=== PATIENT | female | born 1965 | race Caucasian/White ===

== ENCOUNTER 2023-04-14 23:17 | Emergency (ER) | payer MEDICAID, OTHER, SELFPAY ==
[2023-04-14 23:34] VITALS: BP 135/55; PULSE 87; RESP 20; TEMP 36.6; O2SAT 96; BMI 23.0
--- NOTE | 2023-04-15 00:07 | PC.NURSE ---
staying with mother recently, mother recently ill, states recent addition of wellbutrin to regimen, staed she took a xanax prior to coming in (states prescribed) denies recent use of drugs or etoh, denies hallucinations, contracts for safety here. states shes gone to hospital for sim problem in last month. also states restatrted smoking again in last week, hasnt smoked for 30 years.
--- NOTE | 2023-04-15 00:10 | ED_ITS ---
HPI - Psych General Chief Complaint: Psychiatric Symptoms Stated Complaint: Crisis Eval Time Seen by Provider: 04/14/23 23:49 Source: patient Mode of arrival: ambulatory Limitations: no limitations History of Present Illness HPI Narrative: 57 yo female with PMH of anxiety no prior SI attempts or inpatient stays recent add on of wellbutrin 1 month ago but denies this made her symptoms worse comes in with worsening anxiety and depression vague SI no plan wants to talk to crisis team MD complaint: suicidal ideation, feels depressed and anxiety Onset (ago): month(s) (1+) Duration: getting worse History of same: Yes Relieving factors: none Exacerbating factors: other Context: new medication(s) and significant life stressor Associated psychiatric symptoms: depression and suicidal ideation Associated symptoms: denies other symptoms Treatments prior to arrival: none If self harm: admits thoughts of self harm Related Data Allergies Allergy/AdvReac Type Severity Reaction Status Date / Time levofloxacin [From Levaquin] Allergy Unknown Verified 04/14/23 23:34 pseudoephedrine Allergy Unknown Verified 04/14/23 23:34 [From Sudafed] Sulfa (Sulfonamide Allergy Unknown Verified 04/14/23 23:34 Antibiotics) erythromycin base AdvReac Mild Unknown Unverified 04/15/23 00:36 Fish Containing Products AdvReac Stomach Verified 04/15/23 00:37 Upset Pork/Porcine Containing AdvReac Stomach Verified 04/15/23 00:36 Products Upset Review of Systems 2 Review of Systems: Constitutional : No Fever, No Chills ENT/Mouth : No Ear Pain, No Nasal Congestion, No sore throat Eyes: No Eye Pain, No Swelling, No Redness Cardiovascular : No Chest Pain, No SOB Respiratory : No Cough, No Sputum, No Dyspnea Gastrointestinal : No Nausea, No Vomiting, No Diarrhea, No Hematochezia, No Melena Genitourinary : No Dysuria, No Urinary Frequency, No Hematuria Musculoskeletal : No Myalgias Skin : No Skin Lesions, No rash Neuro : No Weakness, No Numbness, No Paresthesias, No Dizziness, No Headache Psych : positive Anxiety, positive Depression, positive SI no HI Heme/Lymph: No Lymphadenopathy Endocrine : No Polyuria, No Polydipsia All other systems reviewed and are negative [facility] Past Medical History Medical History Anxiety Social History Social History (Updated 04/15/23 @ 00:10 by Nasima Ambrocio DO) Patient Tobacco Use Status: Current someday Tobacco user Advance Directives: No Advance Directives Information Provided: No Healthcare Proxy: No Guardian: No Physical Exam 2 Vital Signs: Vital Signs: Last Vital Signs Temp 97.9 F 04/14/23 23:34 Pulse 87 04/14/23 23:34 Resp 20 04/14/23 23:34 BP 135/55 L 04/14/23 23:34 Pulse Ox 96 04/14/23 23:34 O2 Del Method Room Air 04/14/23 23:34 BMI result Body Mass Index 23.0 Appearance: Alert. Oriented X3. No acute distress. Eyes: Pupils equal, round and reactive to light. ENT: Pharynx normal. Neck: Normal inspection. Neck supple. CVS: Normal heart rate and rhythm. Pulses normal. Respiratory: No respiratory distress. Breath sounds normal. Abdomen: Soft and nontender. Skin: Skin warm and dry. Normal skin color. Normal skin turgor. Extremities: No lower extremity edema. No calf ttp Neuro: Oriented X 3. No motor deficit. No sensory deficit. CN2-12 intact Course Course Course Narrative: Physician observation started at 1212am. Patient placed in physician observation because the patient needed more time for CARE team to assess the need for psych admission. At the time observation was started the patient's vitals were stable, patient is alert and oriented but anxious, Neuro: nonfocal, CV RRR, Lungs clear Reevaluation(s) Reevaluation #1: Physician observation ended at 336am. Patient seen and cleared by CARE team. Plan is to follow up with outpatient program. NAD, lungs clear, CV RRR, Abd nontender, Neuro intact. Disposition is for home. Medical Decision Making Medical Decision Making MDM Narrative: 57 yo female with PMH of anxiety here with worsening anxiet started wellbutrin 1 month ago not helping doesn't feel it is causing worsening symptoms or vague SI at this time no medical complaints will obtain labs and CARE team consult Differential Diagnosis Differential Diagnoses: The differential diagnosis associated with the presentation includes anxiety and depression Admission/Observation Consideration of admission/observation: Escalation of care including admission/observation considered observe until care team sees patient Consult Healthcare Provider Management of the patient was discussed with: Behavioral Health Provider Lab Data [facility] Lab Attestation statement: I reviewed the patient's lab results. 04/15/23 00:30 04/15/23 00:31 Labs: Lab Results 04/15/23 04/15/23 04/15/23 Range/Units 00:30 00:31 00:37 WBC 7.3 (4.8-10.8) X10*3/uL RBC 4.39 (4.20-5.50) X10*6/uL Hgb 12.7 (12.0-16.0) g/dl Hct 36.5 L (37.0-47.0) % MCV 83.1 (80.0-98.0) fL MCH 28.9 (27.0-33.0) pg MCHC 34.8 (31.0-35.0) g/dl RDW 13.6 (11.0-16.0) % Plt Count 262 (160-400) X10*3/uL MPV 10.0 (9.4-12.3) fL Immature Gran % (Auto) 0.3 (0.0-0.4) % Neut % (Auto) 61.9 (45-73) % Lymph % (Auto) 28.0 (20-40) % [place] % (Auto) 6.4 (2-11) % Eos % (Auto) 2.9 (0-4) % Baso % (Auto) 0.5 (0-2) % Lymph # (Auto) 2.1 (1.2-4.9) X10*3/uL [place] # (Auto) 0.5 (0.1-1.2) X10*3/uL Eos # (Auto) 0.2 (0.0-0.4) X10*3/uL Baso # (Auto) 0.0 (0.0-0.2) X10*3/uL Abs Immat Gran (auto) 0.02 (0.00-0.03) X10*3/uL Absolute Neuts (auto) 4.5 (2.0-8.3) x10*3/uL Absolute Nucleated RBC 0.000 (0.0-0.012) X10*3/uL Nucleated RBC % (auto) 0.0 (0.0-0.2) /100WBC Sodium 143 (135-145) mmol/L Potassium 3.4 (3.3-5.1) mmol/L Chloride 107 (96-108) mmol/L Carbon Dioxide 27 (22-29) mmol/L Anion Gap 12 (12-20) BUN 16 (9-16) mg/dL Creatinine 0.83 (0.5-1.4) mg/dL Estim Creat Clear Calc 63.3 Estimated GFR > 60 Random Glucose 138 H (60-115) mg/dL Calcium 9.5 (8.4-10.2) mg/dL Magnesium 2.0 (1.6-2.6) mg/dL Total Bilirubin 0.2 (0.0-1.0) mg/dL Direct Bilirubin 0.2 (0.0-0.5) mg/dL AST 16 (5-31) U/L ALT 20 (0-31) U/L Alkaline Phosphatase 74 (39-117) U/L Total Protein 6.6 (6.5-8.0) g/dL Albumin 3.9 (3.5-5.0) g/dL Urine Color Yellow Urine Appearance Urine pH (5.0-9.0) Ur Specific [place] (1.005-1.025) Urine Protein (Neg-Trace) mg/dL Urine Glucose (UA) (Negative) mg/dL Urine Ketones (Negative) mg/dL Urine Blood (Negative) Urine Nitrite (Negative) Ur Leukocyte Esterase (Negative) Urine RBC (0-2) /HPF Urine WBC (0-5) /HPF Urine WBC Clumps Ur Squamous Epith Cells (0-2) /HPF Ur Transition Epith Cell Ur Renal Epithelial Cell Calcium Oxalate Crystal Leucine Crystals Cystine Crystals Tyrosine Crystals Other Crystals Urine Bacteria (None Seen) Urine Parasites Bilirubin Casts Epithelial Casts Fatty Casts Hyaline Casts (0-2) /LPF Granular Casts Waxy Casts Broad Casts RBC Casts WBC Casts Other Casts Urine Trichomonas Urine Yeast Urine Opiates Screen (Not Detect) Urine Fentanyl Screen (Not Detect) Ur Barbiturates Screen (Not Detect) Ur Phencyclidine Scrn (Not Detect) Ur Amphetamines Screen (Not Detect) U Benzodiazepines Scrn (Not Detect) Urine Cocaine Screen (Not Detect) U Marijuana (THC) Screen (Not Detect) Ethyl Alcohol < 10 mg/dL COVID-19 ([facility]) Negative (Negative) COVID-19 Clin Com See Note 04/15/23 04/15/23 04/15/23 Range/Units 00:37 00:37 00:37 WBC (4.8-10.8) X10*3/uL RBC (4.20-5.50) X10*6/uL Hgb (12.0-16.0) g/dl Hct (37.0-47.0) % MCV (80.0-98.0) fL MCH (27.0-33.0) pg MCHC (31.0-35.0) g/dl RDW (11.0-16.0) % Plt Count (160-400) X10*3/uL MPV (9.4-12.3) fL Immature Gran % (Auto) (0.0-0.4) % Neut % (Auto) (45-73) % Lymph % (Auto) (20-40) % [place] % (Auto) (2-11) % Eos % (Auto) (0-4) % Baso % (Auto) (0-2) % Lymph # (Auto) (1.2-4.9) X10*3/uL [place] # (Auto) (0.1-1.2) X10*3/uL Eos # (Auto) (0.0-0.4) X10*3/uL Baso # (Auto) (0.0-0.2) X10*3/uL Abs Immat Gran (auto) (0.00-0.03) X10*3/uL Absolute Neuts (auto) (2.0-8.3) x10*3/uL Absolute Nucleated RBC (0.0-0.012) X10*3/uL Nucleated RBC % (auto) (0.0-0.2) /100WBC Sodium (135-145) mmol/L Potassium (3.3-5.1) mmol/L Chloride (96-108) mmol/L Carbon Dioxide (22-29) mmol/L Anion Gap (12-20) BUN (9-16) mg/dL Creatinine (0.5-1.4) mg/dL Estim Creat Clear Calc Estimated GFR Random Glucose (60-115) mg/dL Calcium (8.4-10.2) mg/dL Magnesium (1.6-2.6) mg/dL Total Bilirubin (0.0-1.0) mg/dL Direct Bilirubin (0.0-0.5) mg/dL AST (5-31) U/L ALT (0-31) U/L Alkaline Phosphatase (39-117) U/L Total Protein (6.5-8.0) g/dL Albumin (3.5-5.0) g/dL Urine Color Cancelled Urine Appearance Cloudy Cancelled Urine pH 7.0 Cancelled (5.0-9.0) Ur Specific [place] 1.020 (1.005-1.025) Urine Protein (Neg-Trace) mg/dL Urine Glucose (UA) (Negative) mg/dL Urine Ketones (Negative) mg/dL Urine Blood (Negative) Urine Nitrite (Negative) Ur Leukocyte Esterase (Negative) Urine RBC (0-2) /HPF Urine WBC (0-5) /HPF Urine WBC Clumps Ur Squamous Epith Cells (0-2) /HPF Ur Transition Epith Cell Ur Renal Epithelial Cell Calcium Oxalate Crystal Leucine Crystals Cystine Crystals Tyrosine Crystals Other Crystals Urine Bacteria (None Seen) Urine Parasites Bilirubin Casts Epithelial Casts Fatty Casts Hyaline Casts (0-2) /LPF Granular Casts Waxy Casts Broad Casts RBC Casts WBC Casts Other Casts Urine Trichomonas Urine Yeast Urine Opiates Screen (Not Detect) Urine Fentanyl Screen (Not Detect) Ur Barbiturates Screen (Not Detect) Ur Phencyclidine Scrn (Not Detect) Ur Amphetamines Screen (Not Detect) U Benzodiazepines Scrn (Not Detect) Urine Cocaine Screen (Not Detect) U Marijuana (THC) Screen (Not Detect) Ethyl Alcohol mg/dL COVID-19 ([facility]) (Negative) COVID-19 Clin Com 04/15/23 04/15/23 04/15/23 Range/Units 00:37 00:37 00:37 WBC (4.8-10.8) X10*3/uL RBC (4.20-5.50) X10*6/uL Hgb (12.0-16.0) g/dl Hct (37.0-47.0) % MCV (80.0-98.0) fL MCH (27.0-33.0) pg MCHC (31.0-35.0) g/dl RDW (11.0-16.0) % Plt Count (160-400) X10*3/uL MPV (9.4-12.3) fL Immature Gran % (Auto) (0.0-0.4) % Neut % (Auto) (45-73) % Lymph % (Auto) (20-40) % [place] % (Auto) (2-11) % Eos % (Auto) (0-4) % Baso % (Auto) (0-2) % Lymph # (Auto) (1.2-4.9) X10*3/uL [place] # (Auto) (0.1-1.2) X10*3/uL Eos # (Auto) (0.0-0.4) X10*3/uL Baso # (Auto) (0.0-0.2) X10*3/uL Abs Immat Gran (auto) (0.00-0.03) X10*3/uL Absolute Neuts (auto) (2.0-8.3) x10*3/uL Absolute Nucleated RBC (0.0-0.012) X10*3/uL Nucleated RBC % (auto) (0.0-0.2) /100WBC Sodium (135-145) mmol/L Potassium (3.3-5.1) mmol/L Chloride (96-108) mmol/L Carbon Dioxide (22-29) mmol/L Anion Gap (12-20) BUN (9-16) mg/dL Creatinine (0.5-1.4) mg/dL Estim Creat Clear Calc Estimated GFR Random Glucose (60-115) mg/dL Calcium (8.4-10.2) mg/dL Magnesium (1.6-2.6) mg/dL Total Bilirubin (0.0-1.0) mg/dL Direct Bilirubin (0.0-0.5) mg/dL AST (5-31) U/L ALT (0-31) U/L Alkaline Phosphatase (39-117) U/L Total Protein (6.5-8.0) g/dL Albumin (3.5-5.0) g/dL Urine Color Urine Appearance Urine pH (5.0-9.0) Ur Specific [place] Cancelled (1.005-1.025) Urine Protein Negative Cancelled (Neg-Trace) mg/dL Urine Glucose (UA) Negative Cancelled (Negative) mg/dL Urine Ketones Negative (Negative) mg/dL Urine Blood (Negative) Urine Nitrite (Negative) Ur Leukocyte Esterase (Negative) Urine RBC (0-2) /HPF Urine WBC (0-5) /HPF Urine WBC Clumps Ur Squamous Epith Cells (0-2) /HPF Ur Transition Epith Cell Ur Renal Epithelial Cell Calcium Oxalate Crystal Leucine Crystals Cystine Crystals Tyrosine Crystals Other Crystals Urine Bacteria (None Seen) Urine Parasites Bilirubin Casts Epithelial Casts Fatty Casts Hyaline Casts (0-2) /LPF Granular Casts Waxy Casts Broad Casts RBC Casts WBC Casts Other Casts Urine Trichomonas Urine Yeast Urine Opiates Screen (Not Detect) Urine Fentanyl Screen (Not Detect) Ur Barbiturates Screen (Not Detect) Ur Phencyclidine Scrn (Not Detect) Ur Amphetamines Screen (Not Detect) U Benzodiazepines Scrn (Not Detect) Urine Cocaine Screen (Not Detect) U Marijuana (THC) Screen (Not Detect) Ethyl Alcohol mg/dL COVID-19 ([facility]) (Negative) COVID-19 Clin Com 04/15/23 04/15/23 04/15/23 Range/Units 00:37 00:37 00:37 WBC (4.8-10.8) X10*3/uL RBC (4.20-5.50) X10*6/uL Hgb (12.0-16.0) g/dl Hct (37.0-47.0) % MCV (80.0-98.0) fL MCH (27.0-33.0) pg MCHC (31.0-35.0) g/dl RDW (11.0-16.0) % Plt Count (160-400) X10*3/uL MPV (9.4-12.3) fL Immature Gran % (Auto) (0.0-0.4) % Neut % (Auto) (45-73) % Lymph % (Auto) (20-40) % [place] % (Auto) (2-11) % Eos % (Auto) (0-4) % Baso % (Auto) (0-2) % Lymph # (Auto) (1.2-4.9) X10*3/uL [place] # (Auto) (0.1-1.2) X10*3/uL Eos # (Auto) (0.0-0.4) X10*3/uL Baso # (Auto) (0.0-0.2) X10*3/uL Abs Immat Gran (auto) (0.00-0.03) X10*3/uL Absolute Neuts (auto) (2.0-8.3) x10*3/uL Absolute Nucleated RBC (0.0-0.012) X10*3/uL Nucleated RBC % (auto) (0.0-0.2) /100WBC Sodium (135-145) mmol/L Potassium (3.3-5.1) mmol/L Chloride (96-108) mmol/L Carbon Dioxide (22-29) mmol/L Anion Gap (12-20) BUN (9-16) mg/dL Creatinine (0.5-1.4) mg/dL Estim Creat Clear Calc Estimated GFR Random Glucose (60-115) mg/dL Calcium (8.4-10.2) mg/dL Magnesium (1.6-2.6) mg/dL Total Bilirubin (0.0-1.0) mg/dL Direct Bilirubin (0.0-0.5) mg/dL AST (5-31) U/L ALT (0-31) U/L Alkaline Phosphatase (39-117) U/L Total Protein (6.5-8.0) g/dL Albumin (3.5-5.0) g/dL Urine Color Urine Appearance Urine pH (5.0-9.0) Ur Specific [place] (1.005-1.025) Urine Protein (Neg-Trace) mg/dL Urine Glucose (UA) (Negative) mg/dL Urine Ketones Cancelled (Negative) mg/dL Urine Blood Negative Cancelled (Negative) Urine Nitrite Negative Cancelled (Negative) Ur Leukocyte Esterase Small (1+) H (Negative) Urine RBC (0-2) /HPF Urine WBC (0-5) /HPF Urine WBC Clumps Ur Squamous Epith Cells (0-2) /HPF Ur Transition Epith Cell Ur Renal Epithelial Cell Calcium Oxalate Crystal Leucine Crystals Cystine Crystals Tyrosine Crystals Other Crystals Urine Bacteria (None Seen) Urine Parasites Bilirubin Casts Epithelial Casts Fatty Casts Hyaline Casts (0-2) /LPF Granular Casts Waxy Casts Broad Casts RBC Casts WBC Casts Other Casts Urine Trichomonas Urine Yeast Urine Opiates Screen (Not Detect) Urine Fentanyl Screen (Not Detect) Ur Barbiturates Screen (Not Detect) Ur Phencyclidine Scrn (Not Detect) Ur Amphetamines Screen (Not Detect) U Benzodiazepines Scrn (Not Detect) Urine Cocaine Screen (Not Detect) U Marijuana (THC) Screen (Not Detect) Ethyl Alcohol mg/dL COVID-19 ([facility]) (Negative) COVID-19 Clin Com 04/15/23 04/15/23 04/15/23 Range/Units 00:37 00:37 00:37 WBC (4.8-10.8) X10*3/uL RBC (4.20-5.50) X10*6/uL Hgb (12.0-16.0) g/dl Hct (37.0-47.0) % MCV (80.0-98.0) fL MCH (27.0-33.0) pg MCHC (31.0-35.0) g/dl RDW (11.0-16.0) % Plt Count (160-400) X10*3/uL MPV (9.4-12.3) fL Immature Gran % (Auto) (0.0-0.4) % Neut % (Auto) (45-73) % Lymph % (Auto) (20-40) % [place] % (Auto) (2-11) % Eos % (Auto) (0-4) % Baso % (Auto) (0-2) % Lymph # (Auto) (1.2-4.9) X10*3/uL [place] # (Auto) (0.1-1.2) X10*3/uL Eos # (Auto) (0.0-0.4) X10*3/uL Baso # (Auto) (0.0-0.2) X10*3/uL Abs Immat Gran (auto) (0.00-0.03) X10*3/uL Absolute Neuts (auto) (2.0-8.3) x10*3/uL Absolute Nucleated RBC (0.0-0.012) X10*3/uL Nucleated RBC % (auto) (0.0-0.2) /100WBC Sodium (135-145) mmol/L Potassium (3.3-5.1) mmol/L Chloride (96-108) mmol/L Carbon Dioxide (22-29) mmol/L Anion Gap (12-20) BUN (9-16) mg/dL Creatinine (0.5-1.4) mg/dL Estim Creat Clear Calc Estimated GFR Random Glucose (60-115) mg/dL Calcium (8.4-10.2) mg/dL Magnesium (1.6-2.6) mg/dL Total Bilirubin (0.0-1.0) mg/dL Direct Bilirubin (0.0-0.5) mg/dL AST (5-31) U/L ALT (0-31) U/L Alkaline Phosphatase (39-117) U/L Total Protein (6.5-8.0) g/dL Albumin (3.5-5.0) g/dL Urine Color Urine Appearance Urine pH (5.0-9.0) Ur Specific [place] (1.005-1.025) Urine Protein (Neg-Trace) mg/dL Urine Glucose (UA) (Negative) mg/dL Urine Ketones (Negative) mg/dL Urine Blood (Negative) Urine Nitrite (Negative) Ur Leukocyte Esterase Cancelled (Negative) Urine RBC 0-2 Cancelled (0-2) /HPF Urine WBC 11-20 H Cancelled (0-5) /HPF Urine WBC Clumps Cancelled Ur Squamous Epith Cells >20 (0-2) /HPF Ur Transition Epith Cell Ur Renal Epithelial Cell Calcium Oxalate Crystal Leucine Crystals Cystine Crystals Tyrosine Crystals Other Crystals Urine Bacteria (None Seen) Urine Parasites Bilirubin Casts Epithelial Casts Fatty Casts Hyaline Casts (0-2) /LPF Granular Casts Waxy Casts Broad Casts RBC Casts WBC Casts Other Casts Urine Trichomonas Urine Yeast Urine Opiates Screen (Not Detect) Urine Fentanyl Screen (Not Detect) Ur Barbiturates Screen (Not Detect) Ur Phencyclidine Scrn (Not Detect) Ur Amphetamines Screen (Not Detect) U Benzodiazepines Scrn (Not Detect) Urine Cocaine Screen (Not Detect) U Marijuana (THC) Screen (Not Detect) Ethyl Alcohol mg/dL COVID-19 ([facility]) (Negative) COVID-19 Clin Com 04/15/23 04/15/23 04/15/23 Range/Units 00:37 00:37 00:37 WBC (4.8-10.8) X10*3/uL RBC (4.20-5.50) X10*6/uL Hgb (12.0-16.0) g/dl Hct (37.0-47.0) % MCV (80.0-98.0) fL MCH (27.0-33.0) pg MCHC (31.0-35.0) g/dl RDW (11.0-16.0) % Plt Count (160-400) X10*3/uL MPV (9.4-12.3) fL Immature Gran % (Auto) (0.0-0.4) % Neut % (Auto) (45-73) % Lymph % (Auto) (20-40) % [place] % (Auto) (2-11) % Eos % (Auto) (0-4) % Baso % (Auto) (0-2) % Lymph # (Auto) (1.2-4.9) X10*3/uL [place] # (Auto) (0.1-1.2) X10*3/uL Eos # (Auto) (0.0-0.4) X10*3/uL Baso # (Auto) (0.0-0.2) X10*3/uL Abs Immat Gran (auto) (0.00-0.03) X10*3/uL Absolute Neuts (auto) (2.0-8.3) x10*3/uL Absolute Nucleated RBC (0.0-0.012) X10*3/uL Nucleated RBC % (auto) (0.0-0.2) /100WBC Sodium (135-145) mmol/L Potassium (3.3-5.1) mmol/L Chloride (96-108) mmol/L Carbon Dioxide (22-29) mmol/L Anion Gap (12-20) BUN (9-16) mg/dL Creatinine (0.5-1.4) mg/dL Estim Creat Clear Calc Estimated GFR Random Glucose (60-115) mg/dL Calcium (8.4-10.2) mg/dL Magnesium (1.6-2.6) mg/dL Total Bilirubin (0.0-1.0) mg/dL Direct Bilirubin (0.0-0.5) mg/dL AST (5-31) U/L ALT (0-31) U/L Alkaline Phosphatase (39-117) U/L Total Protein (6.5-8.0) g/dL Albumin (3.5-5.0) g/dL Urine Color Urine Appearance Urine pH (5.0-9.0) Ur Specific [place] (1.005-1.025) Urine Protein (Neg-Trace) mg/dL Urine Glucose (UA) (Negative) mg/dL Urine Ketones (Negative) mg/dL Urine Blood (Negative) Urine Nitrite (Negative) Ur Leukocyte Esterase (Negative) Urine RBC (0-2) /HPF Urine WBC (0-5) /HPF Urine WBC Clumps Ur Squamous Epith Cells Cancelled (0-2) /HPF Ur Transition Epith Cell Cancelled Ur Renal Epithelial Cell Cancelled Calcium Oxalate Crystal Cancelled Leucine Crystals Cancelled Cystine Crystals Cancelled Tyrosine Crystals Cancelled Other Crystals Cancelled Urine Bacteria 3+ Cancelled (None Seen) Urine Parasites Cancelled Bilirubin Casts Cancelled Epithelial Casts Cancelled Fatty Casts Cancelled Hyaline Casts 0-2 Cancelled (0-2) /LPF Granular Casts Cancelled Waxy Casts Cancelled Broad Casts Cancelled RBC Casts Cancelled WBC Casts Cancelled Other Casts Cancelled Urine Trichomonas Cancelled Urine Yeast Cancelled Urine Opiates Screen Not Detected (Not Detect) Urine Fentanyl Screen Not Detected (Not Detect) Ur Barbiturates Screen Not Detected (Not Detect) Ur Phencyclidine Scrn Not Detected (Not Detect) Ur Amphetamines Screen Not Detected (Not Detect) U Benzodiazepines Scrn POSITIVE H (Not Detect) Urine Cocaine Screen Not Detected (Not Detect) U Marijuana (THC) Screen Not Detected (Not Detect) Ethyl Alcohol mg/dL COVID-19 ([facility]) (Negative) COVID-19 Clin Com External Record Review External record reviewed: Outpatient record Discharge Plan Discharge Clinical Impression: Acute anxiety Patient Disposition: Home, Self-Care Instructions: Anxiety (ED) Additional Instructions: please follow up with the plan of care set forth by CARE team. Interventions: [place]-Suicide Risk Severity Scale Last Done: 04/15/23 00:10
[2023-04-15 00:36] LABS: MANUAL DIFF FLAG NO
[2023-04-15 00:57] LABS: Basophils Percent Auto 0.5 % (0-2); Eosinophils Absolute Auto 0.2 X10*3/uL (0.0-0.4); Eosinophils Percent Auto 2.9 % (0-4); Hematocrit 36.5 % (37.0-47.0); Hemoglobin 12.7 g/dl (12.0-16.0); Imm Gran Abs Auto 0.02 X10*3/uL (0.00-0.03); Imm Gran Pct Auto 0.3 % (0.0-0.4); Lymphocytes Absolute Auto 2.1 X10*3/uL (1.2-4.9); Mean Corpuscular HGB Conc 34.8 g/dl (31.0-35.0); Mean Corpuscular Hemoglobin 28.9 pg (27.0-33.0); Mean Corpuscular Volume 83.1 fL (80.0-98.0); Monocytes Absolute Auto 0.5 X10*3/uL (0.1-1.2); Monocytes Percent Auto 6.4 % (2-11); Neutrophils Absolute Auto 4.5 x10*3/uL (2.0-8.3); Neutrophils Percent Auto 61.9 % (45-73); Platelet Count 262 X10*3/uL (160-400); Red Blood Count 4.39 X10*6/uL (4.20-5.50); Red Cell Distribution Width 13.6 % (11.0-16.0); White Blood Count 7.3 X10*3/uL (4.8-10.8)
[2023-04-15 00:59] LABS: Amphetamine Screen Urine Not Detected (Not Detect); Barbiturates, Urine Not Detected (Not Detect); Benzodiazepines Screen Urine POSITIVE (Not Detect); Cannabinoid Screen Urine Not Detected (Not Detect); Cocaine Screen Urine Not Detected (Not Detect); Fentanyl, urine Not Detected (Not Detect); Opiate Screen Urine Not Detected (Not Detect); Phencyclidine Screen Urine Not Detected (Not Detect)
[2023-04-15 00:59] LABS: Alanine Aminotransferase 20 U/L (0-31); Albumin Level 3.9 g/dL (3.5-5.0); Alkaline Phosphatase 74 U/L (39-117); Anion Gap 12 (12-20); Aspartate Amino Transferase 16 U/L (5-31); Bilirubin Direct 0.2 mg/dL (0.0-0.5); Bilirubin Total 0.2 mg/dL (0.0-1.0); Blood Urea Nitrogen 16 mg/dL (9-16); Calcium 9.5 mg/dL (8.4-10.2); Carbon Dioxide 27 mmol/L (22-29); Chloride 107 mmol/L (96-108); Creatinine Clr Calc Pharmacy 63.3; Estimated Glomerular Filt Rate > 60; Ethanol < 10 mg/dL; Glucose Random 138 mg/dL (60-115); Potassium 3.4 mmol/L (3.3-5.1); Sodium 143 mmol/L (135-145); Total Protein 6.6 g/dL (6.5-8.0)
[2023-04-15 01:02] LABS: COVID-19 Test Negative (Negative); IDNOW Serial# 152EDE1D
[2023-04-15 01:05] LABS: Appearance Urine Cloudy; Color Urine Yellow; Glucose Urine UA Negative (Negative); Leukocyte Esterase Urine Small (1+) (Negative); Nitrite Urine Negative (Negative); UMIC TRIGGER UACC YES; Urine Blood Negative (Negative); Urine Ketones Negative (Negative); Urine Protein Negative (Neg-Trace)
[2023-04-15 01:07] LABS: Bacteria Urine 3+ (None Seen); Hyaline Casts Urine 0-2 /LPF (0-2); RBC Urine 0-2 /HPF (0-2); Squamous Epithelial Cell Urine >20 /HPF (0-2); UACC Culture Trigger YES
--- NOTE | 2023-04-15 17:51 | MHC.CARE ---
RAD Team faxed [facility] follow Up referral form for this patient, please follow up
--- NOTE | 2023-04-16 14:21 | MHC.CARE ---
Rahat @ [facility] called stating pt is outside [facility] catchment area, will reach out to [facility] for further assistance and will forward pt referral to [facility]
== END 2023-04-15 04:02 | disposition home or self-care (01) ==
PROVIDERS: Emergency Provider Emergency Medicine; PCP Internal Medicine
DX: F41.9 Anxiety disorder, unspecified (principal); F32.A Depression, unspecified; R45.851 Suicidal ideations; Z11.52 Encounter for screening for COVID-19
CPT/HCPCS: 80048; 80076; 80307; 81001; 83735; 85025; 87086; 87635; 99284; S9485

== ENCOUNTER 2023-12-16 17:55 | Emergency (ER) | payer MEDICAID, SELFPAY ==
--- NOTE | ~2023-12-16 | CT_ITS ---
EXAM: CT scan of the head and cervical spine. INDICATION: head injury, pain TECHNIQUE: A noncontrast CT scan was performed from the skull base to the vertex. A noncontrast CT scan of the cervical spine was performed from the base of the skull through T1 at 2.5 mm and 1.25 mm collimation. Coronal and sagittal reformats were obtained at the acquisition workstation. This CT examination was performed using dose optimization techniques as appropriate, variously including the following: *Automated exposure control *Adjustment of mA and/or kV according to patient size (this includes techniques or standardized protocols for targeted exams where dose is matched to indication/reason for exam; i.e. extremities or head) *Use of iterative reconstruction technique DLP: 555 and 260 mGy-cm COMPARISON: None FINDINGS: Head: There is no evidence of acute intracranial hemorrhage or territorial infarction. Ace-white matter differentiation is preserved. No abnormal mass effect or midline shift. No extra-axial fluid collections. No abnormal attenuation is demonstrated within the brain parenchyma. The ventricles and sulcal spaces are proportional without hydrocephalus. Proportional prominence of the ventricles and sulcal spaces. No acute osseous or soft tissue abnormalities. The mastoid air cells and visualized portions of the paranasal sinuses are well aerated. Cervical Spine: The atlantooccipital and atlantoaxial articulations remain well aligned. Straightening of the normal cervical lordosis. Otherwise, there is anatomic alignment of the vertebral bodies and posterior elements. No evidence of acute fracture or subluxation. Notable degenerative disc disease changes lower cervical spine especially at C5-6 and C6-7. Notable degeneration of the left-sided apophyseal articulation at C3-4 without subluxation. There is no prevertebral soft tissue swelling. The thyroid gland and remaining cervical soft tissues are notable for fullness of the left aspect of the larynx to the left of the aryepiglottic fold at the origin of the piriform sinus. This is seen in a limited fashion. Recommend elective CT MRI for further correlation and ENT assessment. CT/CT cervical spine wo IV con IMPRESSION: 1. No acute intracranial pathology. No acute fracture subluxation cervical spine. 2. Fullness left aspect of the larynx as above. Recommend elective CT OR MRI and ENT assessment for further correlation. Mass lesion not excluded including carcinoma. Electronically signed by: Valerio Rivera MD 12/16/2023 07:01 PM EDT RP
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
[2023-12-16 18:02] VITALS: BP 144/88; PULSE 110; RESP 26; TEMP 36.8; O2SAT 99; BMI 30.1
[2023-12-16 18:21] VITALS: BP 129/59; PULSE 82; RESP 16; O2SAT 100
--- NOTE | 2023-12-16 18:27 | PC.NURSE ---
pt reporting improvement in anxiety after returning to room from CT, unknown tetanus - pt stated that she would think about the booster.
[2023-12-16] MEDS: Ibuprofen 600 MG TABLET PO (18:51)
[2023-12-16] MEDS: Acetaminophen 325 MG TABLET 975 MG PO (18:52)
[2023-12-16 20:14] VITALS: BP 114/57; PULSE 75; RESP 16; TEMP 36.3; O2SAT 100
[2023-12-16 20:15] VITALS: BP 114/57; PULSE 75; RESP 16; TEMP 36.3; O2SAT 100
== END 2023-12-16 20:16 | disposition home or self-care (01) ==
PROVIDERS: Emergency Provider Emergency Medicine
DX: S01.01XA Laceration without foreign body of scalp, initial encounter (principal); W50.0XXA Accidental hit or strike by another person, initial encounter; Y93.89 Activity, other specified; Y92.810 Car as the place of occurrence of the external cause; Y99.9 Unspecified external cause status
CPT/HCPCS: 12001; 70450; 72125; 99284

== ENCOUNTER 2024-04-05 13:32 | Outpatient (AMB) | payer MEDICAID, SELFPAY ==
--- NOTE | 2024-04-05 13:33 | MHC.OFFVIS ---
Vital Signs 04/05/24 13:35 Height 5 ft 3 in Weight 152 lb 1.903 oz BMI 26.9 BP 120/76 Blood Pressure Location Rt brachial Position Sitting Pulse 89 Pulse Source Pulse Oximeter Pulse Oximetry (%) 97 Oxygen Delivery Method Room Air Intake Visit Reasons: pulmonary lung nodule Allergies levofloxacin [From Levaquin] Allergy (Verified 12/16/23 18:14) Unknown pseudoephedrine [From Sudafed] Allergy (Verified 12/16/23 18:14) Unknown Sulfa (Sulfonamide Antibiotics) Allergy (Verified 12/16/23 18:14) Unknown erythromycin base Adverse Reaction (Mild, Verified 12/16/23 18:14) Unknown HPI Comments Details: The patient is here for pulmonary evaluation. The patient is a 58 year woman here for evaluation of a pulmonary nodule. The patient states that she was long-time smoker and then she was able to quit when she was with her children. But, unfortunately she went back to smoking. Respiratory mcleod the patient does have a chronic cough chest congestion a lot of it has to do with her significant chronic sinusitis. Apparently as a teenager she did have plastic surgery to the nose and afterwards had issues with complications. She has been evaluated by ENT. Currently uses fluticasone. She has had allergy testing previously demonstrating no significant allergens that were identified at that time. Ultimately the patient did have a injury where she hit her head sometime in December she went to the ER. There she had a CT scan of the brain and also of the cervical area. It demonstrated some irregularity to the nasal pharynx with some density in the area. It was recommended that she follow-up with ENT. Therefore, the patient did have a repeat CT scan head and neck at [facility] which I personally reviewed. Significant chronic sinusitis deviated septum. The patient needs to have that further address specially since his significantly abnormal. In the meantime laryngoscopy will be helpful to better address the abnormality in the posterior pharynx. The CT scan of the head and neck at [facility] also picked up a 3 mm subsolid nodule that I visualize with her in the office. The nodules in the right upper lobe area and only limited lung windows are available to really identify any other abnormalities. The patient does have a history of lung cancer in the family and unfortunately she is also an active smoker with puts her in additional higher risk for lung cancer. Therefore will request a formal CT scan of the chest to better address the pulmonary nodule in addition to that the patient will have blood work including allergy testing. We will refer her to ENT at this time. [facility] Medical History (Updated 04/05/24 @ 23:23 by Espinoza Nicole MD) Tobacco dependence Pulmonary nodule Sinusitis Allergies Anxiety Social History (Updated 04/05/24 @ 13:37 by Staci Craft CMA) Patient Tobacco Use Status: Current someday Tobacco user Cigarette Packs Per Day: 0.5 Cigarettes Per Day: 10 Review of Systems Const Denies fever(s) ENT Reports hoarseness, Reports nasal congestion, Reports nasal obstruction, Reports sinus pain and Reports sinus pressure Card Denies chest pain Resp Reports cough and Denies wheezing GI Reports no additional complaints Musc Reports no additional complaints Skin/Breast Denies rash Chadwick/Lymph Reports no additional complaints Aller/Immun Denies wheezing Physical Exam Vital Signs: Last Vital Signs Pulse 89 04/05/24 13:35 BP 120/76 04/05/24 13:35 Pulse Ox 97 04/05/24 13:35 Oxygen Delivery Method Room Air 04/05/24 13:35 BMI result Body Mass Index 26.9 Const General: comfortable HEENT General nose exam: Abnormal mucous membranes and turbinates present erythematous Throat: Yes postnasal drainage Neck Neck: Yes supple Chest Chest palpation & inspection: normal inspection of the chest Resp Effort & Inspection: normal respiratory effort Auscultation: clear to auscultation bilaterally Cardio Rate: regular rate Rhythm: regular rhythm Heart sounds: S1 normal heart sound present and S2 normal heart sound present GI Palpation (GI): Soft to palpation Skin General skin exam: no rashes or lesions noted Extrem General: Yes no clubbing, cyanosis or edema Assessment & Plan Assessment & Plan (1) Allergies: Code(s): T78.40XA - Allergy, unspecified, initial encounter Category: Medical Qualifiers: Encounter type: initial encounter Qualified Code(s): T78.40XA - Allergy, unspecified, initial encounter (2) Sinusitis: Code(s): J32.9 - Chronic sinusitis, unspecified Category: Medical Qualifiers: Sinusitis location: pansinusitis Chronicity: chronic Qualified Code(s): J32.4 - Chronic pansinusitis (3) Pulmonary nodule: Code(s): R91.1 - Solitary pulmonary nodule Category: Medical (4) Tobacco dependence: Code(s): F17.200 - Nicotine dependence, unspecified, uncomplicated Category: Medical Plan bloodwork and allergy testing Formal CT chest to address pulmonary nodule documented on the CT neck Referral to [facility]. She had complications after rhinoplasty. CT demonstrating an irregular nasopharynx and significant chronic sinusitis. She has been tramautized by her complications, should be evaluated at [facility] for that reason. Needs to quit smoking, does not want nicotine supplementation continue fluticasone F/U 6-8 weeks Orders: Orders Immunoglobulins,IgG IgA IgM Today J32.9 - Chronic sinusitis, unspecified, T78.40XA - Allergy, unspecified, initial encounter Immunoglobulin E Today J32.9 - Chronic sinusitis, unspecified, T78.40XA - Allergy, unspecified, initial encounter Complete Blood Count Auto Diff Today J32.9 - Chronic sinusitis, unspecified, T78.40XA - Allergy, unspecified, initial encounter CT chest wo IV con Today J32.9 - Chronic sinusitis, unspecified, R91.1 - Solitary pulmonary nodule, T78.40XA - Allergy, unspecified, initial encounter Resp Allergy Profile Region I Today J32.9 - Chronic sinusitis, unspecified, R91.1 - Solitary pulmonary nodule, T78.40XA - Allergy, unspecified, initial encounter Erythrocyte Sedimentation Rate Today J32.9 - Chronic sinusitis, unspecified, T78.40XA - Allergy, unspecified, initial encounter Medications: New fluticasone propionate 50 mcg/actuation 2 sprays intranasal DAILY 16 grams 6RF 30 days Coding Level of Care Code New Pt Level 4 (77484) Diagnoses Allergy, initial encounter T78.40XA Encounter type: initial encounter Chronic pansinusitis J32.4 Sinusitis location: pansinusitis Chronicity: chronic Pulmonary nodule R91.1 Tobacco dependence F17.200 Time Spent (min) 40
[2024-04-05 13:35] VITALS: BP 120/76; PULSE 89; O2SAT 97; BMI 26.9
--- OUTSIDE RECORDS SUMMARY | 2024-04-05 15:17 | XMS_ITS | Clinical Summary ---
Author Organization [facility] Address [address] [place] [address] Care Team Providers Care Strike Plate Attacher Name Role Phone Unavailable Primary Care Provider Unavailabl e Social History Tobacco Use Types Packs/Day Years Used Date Smoking Tobacco: Never Assessed Sex and Gender Information Value Date Recorded Sex Assigned at Not on file Gender Identity Not on file Sexual Orientation Not on file Plan of Treatment Health Maintenance Due Date Last Done Comments Hepatitis C Virus Screening 1965 HIV Screening 12/27/1980 DTaP/Tdap/Td Vaccines (1 - Tdap) 12/27/1986 Hepatitis B Vaccines (1 of 3 - 19+ 3-dose series) 12/27/1986 Pneumococcal Vaccines 50+ (1 of 1 - PCV) 12/27/2017 Zoster (Shingles) Vaccine (1 of 2) 12/27/2017 COVID-19 Vaccine ( - 2023-2 5 season) 2023 Pneumococcal Vaccine: Pediat milly (0-5 Years) and At-Risk Patients (6 to 49 Years) Aged Out No longer eligible b ased on patient's age to complete this topic
--- OUTSIDE RECORDS SUMMARY | 2024-04-05 15:17 | XMS_ITS | Encounter Summary ---
Author Organization [facility] Address [address] [place] [address] Care Team Providers Care Production Department Supervisor Name Role Phone Unavailable Primary Care Provider Unavailabl e Encounter Details Date Type Department Care Team (Latest Contact Info) Description 03/02/2020 Lab Requisition [facility] COVID [address] Through [address] [place] [address] [address] [place] [address] Sunny Jacinto PA-C [address] [place] [address] [phone] Encounter for laboratory testing for COVID-19 virus Social History Tobacco Use Types Packs/Day Years Used Date Smoking Tobacco: Never Assessed Sex and Gender Information Value Date Recorded Sex Assigned at Not on file Gender Identity Not on file Sexual Orientation Not on file documented as of this encounter Plan of Treatment Not on file documented as of this encounter Procedures Procedure Name Priority Date/Time Associated Diagnosis Comments COVID-19 (SARS-COV-2) - [facility] Routine 03/02/2020 4:57 PM EST Encounter for laboratory testing for COVID-19 virus [ICD-10-CM] documented in this encounter Results * COVID-19 (SARS-COV-2) ([facility]) (03/02/2020 4:57 PM EST) COVID-19 RT-PCR NOT-DETECT ED Not-Detec moni 03/04/2020 6:30 PM EST [facility] - [facility] Comment:Interpretation: The viral RNA was not detected, making the COVID-19 diagnosis less likely. Clinical correlation is highly recommended.Final report signed by Kimberly Willett, Ph.D., [facility], Laboratory DirectorTests performed at [facility] Nasopharyngeal swab / Unknown 03/02/2020 4:57 PM EST 03/02/2020 4:57 PM EST Narrative STEFFANY FRANCE Gianna [facility] - 03/04/2020 6:30 PM EST Performed by [facility] [employer] [address] [place] [address], CLIA# [id number] and CT License# [id number] Sunny Jacinto PA-C MICROBIOLOGY - NERAL ORDERABLES MERLYNZoila QIU documented in this encounter Visit Diagnoses Diagnosis Encounter for laboratory testing for COVID-19 virus documented in this encounter
--- OUTSIDE RECORDS SUMMARY | 2024-04-05 15:17 | XMS_ITS | Clinical Summary ---
Author Organization [facility] Address [address] [place] [address] Care Team Providers Care Area Mechanic Name Role Phone Rosaura Hart MD Primary Care Provider [phone] Social History Tobacco Use Types Packs/Day Years Used Date Smoking Tobacco: Former Smokeless Tobacco: Never Sex and Gender Information Value Date Recorded Sex Assigned at Not on file Gender Identity Not on file Sexual Orientation Not on file Obstetrics History Plan of Treatment Health Maintenance Due Date Last Done Comments Breast Cancer Screening 1965 COVID-19 Vaccine (#1) 12/27/1972 DTaP,Tdap,and Td Vaccines (1 - Tdap) 12/27/1986 Hepatitis B Vaccines (1 of 3 - 19+ 3-dose series) 12/27/1986 Cervical Cancer Screening: P ap Smear 12/27/1988 Zoster Vaccines (1 of 2) 12/27/2017 Colorectal Cancer Screening: Colonoscopy 02/13/2022 Depression Screening 02/13/2022 HIV Screening 02/13/2022 Hepatitis C Screening 02/13/2022 Social Influencers of Health Screening 02/13/2022 Influenza Vaccine (#1) 2023 HIB Vaccines Aged Out No longer eligi ble based on patient's age to complete this topic HPV Vaccines Aged Out No longer eligi ble based on patient's age to complete this topic Hepatitis A Vaccines Aged Out No long er eligible based on patient's age to complete this topic IPV Vaccines Aged Out No longer eligi ble based on patient's age to complete this topic MMR Vaccines Aged Out No longer eligi ble based on patient's age to complete this topic Meningococcal ACWY Vaccine Aged Out N o longer eligible based on patient's age to complete this topic Pneumococcal Vaccine: Pediat rics (0 to 5 Years) and At-Risk Patients (6 to 64 Years) Aged Out No longer eligible b ased on patient's age to complete this topic RSV Immunization Patients Un niranjan 20 months Aged Out No longer eligible b ased on patient's age to complete this topic Varicella Vaccines Aged Out No longer eligible based on patient's age to complete this topic Care Teams Area Mechanic Relationship Specialty Start Date End Date Rosaura Hart MD [address] [place] [address] PCP - General Internal Medicine 10/24/17
== END 2024-04-05 14:07 | disposition home or self-care (01) ==
PROVIDERS: PCP Internal Medicine; Referring Provider Internal Medicine; Visit Provider Hospitalist
DX: T78.40XA Allergy, unspecified, initial encounter (principal); J32.4 Chronic pansinusitis; R91.1 Solitary pulmonary nodule; F17.200 Nicotine dependence, unspecified, uncomplicated
CPT/HCPCS: 99204

== ENCOUNTER → 2024-04-05 13:32 | Outpatient (BNVA) | payer MEDICAID, SELFPAY | PROVIDERS: PCP Internal Medicine; Referring Provider Internal Medicine; Visit Provider Hospitalist | DX: R91.1 Solitary pulmonary nodule (principal); J32.4 Chronic pansinusitis; F17.210 Nicotine dependence, cigarettes, uncomplicated; T78.40XD Allergy, unspecified, subsequent encounter | CPT/HCPCS: 99202 ==

== ENCOUNTER 2024-07-11 12:53 | Outpatient (REF) | payer MEDICAID, SELFPAY ==
--- NOTE | ~2024-07-11 | CT_ITS ---
CLINICAL HISTORY: R91.1 - Solitary pulmonary nodule CT chest without contrast Comparison: None Findings: The heart size is normal. The visualized thyroid and mediastinum are unremarkable. No consolidation or effusion. The upper abdomen is unremarkable. The bones are intact. IMPRESSION: 1. Unremarkable chest CT. This document has been electronically signed by: Esther Lane MD on 07/12/2024 16:34:39
== END 2024-07-11 12:54 | disposition home or self-care (01) ==
LOC: HO.CT 12:53
PROVIDERS: PCP Internal Medicine; Visit Provider Hospitalist
DX: R91.1 Solitary pulmonary nodule (principal)
CPT/HCPCS: 71250

== ENCOUNTER → 2024-07-11 12:55 | Outpatient (BNV) | payer MEDICAID, SELFPAY | PROVIDERS: PCP Internal Medicine; Visit Provider Radiology Diagnostic Radiology | DX: R91.1 Solitary pulmonary nodule (principal) | CPT/HCPCS: 71250 ==